=== PATIENT | female | born 1955 ===

== ENCOUNTER 2018-03-24 00:03 | Emergency (ER) | payer MEDICARE ==
[2018-03-24 00:16] VITALS: BP 118/74
[2018-03-24] MEDS ORDERED: MOTRIN 600 MG PO ONE (00:24)
[2018-03-24] MEDS ORDERED: MOTRIN 600 MG ONE (00:31)
--- NOTE | 2018-03-24 00:31 | ERPHSYRPT ---
- History of Present Illness Time Seen by Provider: 03/24/18 00:15 Source: patient Exam Limitations: clinical condition Patient Subjective Stated Complaint: PT IS ALERT AND ORIENTED. PT BROUGHT IN BY AMBULANCE BUT AMBULATED TO BED. PT STATES THAT SHE IS HAVING RIGHT KNEE PAIN RATING A 9 ON A 1-10 SCALE. PT IS ABLE TO BEND HER KNEE AND SEEMS TO HAVE LITTLE TO NO LOSS OF ROM. PT STATES SHE HAS A HX OF "POISON IN HER RIGHT KNEE". PT HAS SCAR DOWN THE ANTERIOR PORTION OF HER RIGHT KNEE. NO REDNESS, BRUISING, SWELLING, OR OBVIOUS DEFORMITY NOTED. Triage Nursing Assessment: SEE ABOVE Physician History: PATIENT WITH A HISTORY OF RIGHT CHRONIC KNEE PAIN SINCE HER SURGERY YEARS AGO. STATES HER RIGHT KNEE GAVE OUT WHILE WALKING TO [place]. DENIES ABRASION, SWELLING, BRUISING OR DEFORMITY. HAS PAIN UPON WEIGHT BEARING, AMBULATES WITH CANE ASSISTANCE. Method of Injury: twisted Occurred: just prior to arrival Quality: constant Severity of Pain-Max: moderate Severity of Pain-Current: moderate Lower Extremities Pain: knee: right Associated Symptoms: other (HAS CHRONIC PAIN UPON WEIGHT BEARING) Allergies/Adverse Reactions: sertraline [From Zoloft] Allergy (Verified 03/24/18 00:16) venlafaxine [From Effexor] Allergy (Verified 03/24/18 00:16) Home Medications: Aspirin EC 81 mg [Ecotrin 81 mg] 81 mg PO DAILY 03/24/18 [History] Bupropion HCl [Wellbutrin] 100 mg PO DAILY 03/24/18 [History] Hydroxyzine Pamoate [Vistaril] 25 mg PO DAILY 03/24/18 [History] Quetiapine Fumarate [Seroquel] 400 mg PO DAILY 03/24/18 [History] Trazodone HCl 300 mg PO DAILY 03/24/18 [History] Hx Tetanus, Diphtheria Vaccination/Date Given: No Hx Influenza Vaccination/Date Given: No Hx Pneumococcal Vaccination/Date Given: No Immunizations Up to Date: Yes - Review of Systems Constitutional: No Symptoms Abdominal/Gastrointestinal: No Symptoms Musculoskeletal: Injury, Joint Pain Neurological: No Symptoms Psychological: No Symptoms - Past Medical History Pertinent Past Medical History: Yes Neurological History: No Pertinent History ENT History: No Pertinent History Cardiac History: High Cholesterol Respiratory History: No Pertinent History Endocrine Medical History: No Pertinent History Musculoskeletal History: Degenerative Disk Disease GI Medical History: GERD History: No Pertinent History Psycho-Social History: Depression Female Reproductive Disorders: No Pertinent History Other Medical History: Rheumatic fever - Past Surgical History Past Surgical History: Yes Neuro Surgical History: No Pertinent History Cardiac: No Pertinent History Respiratory: No Pertinent History Gastrointestinal: Cholecystectomy Musculoskeletal: Orthopedic Surgery Female Surgical History: Hysterectomy - Social History Smoking Status: Current every day smoker How long have you smoked: 50 YEARS Drug Use: none - Female History Hx Now: No - Nursing Vital Signs Nursing Vital Signs: Initial Vital Signs Temperature 98.6 F 03/24/18 00:05 Pulse Rate 89 03/24/18 00:05 Respiratory Rate 18 03/24/18 00:05 Blood Pressure 118/74 03/24/18 00:05 O2 Sat by Pulse Oximetry 97 03/24/18 00:05 Pain Scale Pain Intensity 9 - Physical Exam SpO2: 97 Oxygen Delivery: Room Air - Radiology Exams Right Knee X-ray Interpretation: Interpreted by me, Negative, No Fracture (MILD DEGENERATIVE ARTHRITIS) Ordered Tests: Active Orders 24 hr Category Date Time Status KNEE (3 VIEWS) Stat Exams 03/24/18 00:25 Taken HCG,QUALITATIVE URINE Stat Lab 03/24/18 Uncollected Medication Summary Discontinued Medications Generic Name Dose Route Start Last Admin Trade Name Freq PRN Reason Stop Dose Admin Acetaminophen 650 mg 03/24/18 00:34 03/24/18 00:37 Tylenol 325 Mg PO 03/24/18 00:35 650 mg STAT STA Administration Acetaminophen Confirm 03/24/18 00:36 Tylenol 325 Mg Administered 03/24/18 00:37 Dose 650 mg .ROUTE .STK-MED ONE Erythromycin 3.5 gm 03/24/18 01:13 Erythromycin 3.5 Gm Ophth. OP 03/24/18 01:14 STAT ONE Eye Irrigation Solution 15 ml 03/24/18 01:13 Eye-Stream Solution OP 03/24/18 01:14 STAT ONE Fluorescein Sodium 1 mg 03/24/18 01:13 [id number]/Ful-Kamron OP 03/24/18 01:14 STAT ONE Ibuprofen 600 mg 03/24/18 00:24 03/24/18 00:33 Motrin 600 Mg PO 03/24/18 00:25 Not Given STAT ONE Ibuprofen Confirm 03/24/18 00:31 Motrin 600 Mg Administered 03/24/18 00:32 Dose 600 mg .ROUTE .STK-MED ONE Tetracaine HCl 4 ml 03/24/18 01:13 Tetracaine 0.5% Steri-Unit Neetu OP 03/24/18 01:14 STAT STA - Progress Progress Note: 03/24/18 01:17 ADMINISTERED TYLENOL 650MG ORALLY, PATIENT COMPLAINS OF RIGHT EYE IRRITATION AND TEARING X 1 HOUR, DENIES BLURRED VISION, DIPLOPIA, OR DISCHARGE, TETRACAINE OPHTH 2GTTS OD, EVERSION OF UPPER EYE LID WITH COTTON SWAB NO EVIDENCE OF FOREIGN BODY, FLUOR NEGATIVE FOR FOREIGN BODY, EYE IRRIGATION 30ML, ERYTHROMYCIN OPHTHALMIC OINTMENT 1/4" RIBBON INTO RIGHT EYE 03/24/18 01:32 Counseled pt/family regarding: diagnosis, need for follow-up - Departure Time of Disposition: 01:36 Departure Disposition: Home Clinical Impression: CHROINC RIGHT KNEE PAIN, CONJUNCTIVITIS RIGHT KNEE Condition: Stable Critical Care Time: No Additional Instructions: TYLENOL EVERY 4 HOURS NEEDED FOR PAIN, APPLY ERYTHROMYCIN OPHTHALMIC OINTMENT 1/4 INCH RIBBON INTO RIGHT EYE EVERY 6 HOURS FOR 7 DAYS. CONSULT YOUR PRIMARY CARE PROVIDER FOR FOLLOWUP.
[2018-03-24] MEDS ORDERED: TYLENOL 325 MG PO STA (00:34)
[2018-03-24] MEDS ORDERED: TYLENOL 325 MG ONE (00:36)
[2018-03-24 01:01] VITALS: PULSE 64
[2018-03-24] MEDS ORDERED: TETRACAINE 0.5% STERI-UNIT SOL OP STA (01:13)
[2018-03-24] MEDS ORDERED: Eye-Stream Solution OP ONE (01:13)
[2018-03-24] MEDS ORDERED: Fluor-I-Strip/Ful-Flo OP ONE ×2 (01:13→01:17)
[2018-03-24] MEDS ORDERED: Erythromycin 3.5 GM OPHTH. OP ONE (01:13)
[2018-03-24] MEDS ORDERED: TETRACAINE 0.5% STERI-UNIT SOL OP ONE (01:16)
[2018-03-24] MEDS ORDERED: Eye-Stream Solution ONE (01:19)
[2018-03-24] MEDS ORDERED: Erythromycin 1 GM ONE (01:20)
[2018-03-24 01:32] VITALS: O2SAT 97
--- NOTE | 2018-03-24 08:57 | XRAY ---
Indication: Chronic knee pain. No known injury. Comparison: None 3 views of the right knee demonstrates tiny patellar spurring and a few tiny soft tissue calcified granulomas anterior to the tibia. No other bony, articular, or soft tissue abnormalities.
== END 2018-03-24 01:49 | disposition home or self-care (01) ==
LOC: ED 00:03
DX: M25.561 Pain in right knee (principal); H10.9 Unspecified conjunctivitis; Z79.899 Other long term (current) drug therapy
CPT/HCPCS: 73562; 99284; A9270-GY